=== PATIENT | female | born 1945 | race Caucasian/White ===

== ENCOUNTER 2022-11-04 07:48 | Outpatient (OUT) | payer MEDICARE, SELFPAY ==
--- NOTE | 2022-11-04 07:52 | US_ITS ---
The [address] [address] Patient Name: STANLEY LARKIN MRN: [id number] date: 1945 Sex: F Assigned Patient Location: Current Patient Location: US Accession/Order Number: [id number] Exam Date: 11/04/2022 08:00 Report Date: 11/04/2022 08:54 At the request of: NON-STAFF PHYSICIAN Procedure: US pelvis EXAMINATION: US pelvis HISTORY: Pelvic Pain ; chronic left pelvic pain COMPARISON: No relevant comparison available. TECHNIQUE: Transabdominal and/or transvaginal sonographic examination was performed as indicated by examination type. FINDINGS: UTERUS: Normal size and appearance. Uterus size: 5.8 x 2.0 x 3.4 cm ENDOMETRIUM: Normal homogeneous appearance. Endometrial thickness: 2 mm RIGHT OVARY: Normal size and appearance. Duplex Doppler demonstrates normal waveform and flow; resistive index 0.5. Ovary size: 2.1 x 0.8 x 1.2 cm LEFT OVARY: Not seen. CUL-DE-SAC: Unremarkable. No significant free fluid. BLADDER: Unremarkable. OTHER: None. US/US pelvis IMPRESSION: 1. No abnormal or suspicious findings to account for patient's symptoms. Electronically authenticated by: JOHN BURGOS Date: 11/04/2022 08:54
--- NOTE | 2022-11-04 07:58 | MM_ITS ---
Patient: STANLEY LARKIN Exam Date: 11/04/2022 : 1945 Gender:F Ordering : Non-Staff Physician Admission #: [id number] Family : Order #: [id number] CLICK HERE TO VIEW EXAM RADIOLOGY REPORT PROCEDURE: MM TOMOSYNTHESIS SCREENING BI COMPARISON: MG MAMM GERMÁN DIAG W CAD, 01/25/2020. INDICATIONS: Left Breast Pain N64.4 Calculator Name NCI Breast Cancer Risk Assessment Tool 5 Year Breast Cancer Risk 1.10% Lifetime Breast Cancer Risk 1.90% Personal Breast Cancer No Personal Ovarian Cancer No Treatments None Family Cancers Sister with colon cancer at age 53. LOCATION: [facility] BREAST COMPOSITION: Scattered areas fibroglandular density. FINDINGS: DIAGNOSTIC CATEGORY 1--NEGATIVE. RIGHT BREAST: No significant suspicious finding. No significant change has occurred. LEFT BREAST: No significant suspicious finding. No significant change has occurred. RECOMMENDATIONS: ROUTINE MAMMOGRAM AND CLINICAL EVALUATION IN 12 MONTHS. PLEASE NOTE: A NORMAL MAMMOGRAM DOES NOT EXCLUDE THE POSSIBILITY OF BREAST CANCER. A CLINICALLY SUSPICIOUS PALPABLE LUMP SHOULD BE BIOPSIED. Dictated by: Tavo Grider M.D. on 11/04/2022 at 13:32 Approved by: Tavo Grider M.D. on 11/04/2022 at 13:35
== END 2022-11-04 07:49 | disposition home or self-care (01) ==
LOC: US 07:48
DX: R10.2 Pelvic and perineal pain (principal); N64.4 Mastodynia; Z80.0 Family history of malignant neoplasm of digestive organs; Z12.31 Encounter for screening mammogram for malignant neoplasm of breast
CPT/HCPCS: 76856; 77063; 77067